=== PATIENT | female | born 1975 | race Caucasian/White ===

== ENCOUNTER 2018-03-09 06:38 | Day surgery (SDC) | payer OTHER ==
[2018-03-09] MEDS ORDERED: FENTAnyl 50 MCG/ML VIAL (08:07)
[2018-03-09] MEDS ORDERED: MIDAZOLAM 1 MG/ML 2 ML INJ (08:07)
== END 2018-03-09 10:19 | disposition home or self-care (01) ==
LOC: GIL 06:38
DX: K21.9 Gastro-esophageal reflux disease without esophagitis (principal); B96.81 Helicobacter pylori [H. pylori] as the cause of diseases classified elsewhere; K29.60 Other gastritis without bleeding
CPT/HCPCS: 43239; 87081